=== PATIENT | female | born 1950 | race Hispanic/Latino ===

== ENCOUNTER 2024-09-01 08:20 | Observation (INO) | payer OTHER ==
[2024-08-28 14:21] LABS: IMMATURE GRANULOCYTE ABSOLUTE 0.02 K/uL (0-1); NUCLEATED RED BLOOD CELLS 0.0 % (0.0-0.19); PLATELET COUNT (AUTO) 286 K/uL (130-400); RED BLOOD CELL COUNT(AUTO) 4.01 MIL/uL (4.00-5.50); RED CELL DISTRIBUTION WIDTH 12.9 % (11.0-15.5); WHITE BLOOD COUNT (AUTO) 8.4 K/uL (4.8-10.8)
[2024-08-28 14:24] LABS: APPEARANCE,URINE CLEAR (CLEAR); GLUCOSE, URINE (UA) NEGATIVE (NEGATIVE); LEUKOCYTE ESTERASE ,URINE NEGATIVE Leu/uL (NEGATIVE); NITRATE,URINE NEGATIVE (NEGATIVE); OCCULT BLOOD,URINE NEGATIVE (NEGATIVE)
[2024-08-28 14:29] LABS: ADD UA MICROSCOPIC NO
[2024-08-28 14:39] LABS: CREATININE 0.6 mg/dL (0.5-1.0); GLOMERULAR FILTR. RATE CALC 95.0 mL/min (>90); GLUCOSE,RANDOM 107.0 mg/dL (70-105); SODIUM SERUM 133.0 mmol/L (136-145); UREA NITROGEN, BLOOD 13.0 mg/dL (7-18)
[2024-08-28 14:50] LABS: INR <= 0.93 (0.85-1.15)
[2024-08-28 15:15] VITALS: BP 121/58; PULSE 71; RESP 18; TEMP 98.4
--- NOTE | 2024-08-28 15:53 | EKG ---
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
[2024-09-01] VITALS (23 sets, daily range): BP systolic 112–162; BP diastolic 52–79; PULSE 71–88; RESP 16–18; TEMP 97.5–98.4; O2SAT 84–95
[~2024-09-01] VITALS: Ht 165.1 cm; Wt 65.0 kg
[~2024-09-01 08:20] MED LIST: ASPI-1443 PO; ATOR20TA65 PO; HYDR50TA37 PO; LOSA100T59 PO; METO-391 PO
[2024-09-01] MEDS: LACTATED RINGERS 1000ML 1,000 ML IV ONE (09:09)
[2024-09-01] MEDS ORDERED: VANCOMYCIN 1G/250ML KIT 250 ML IV ONE (12:05)
[2024-09-01] MEDS ORDERED: LIDOCAINE PF 100MG/5ML (2%) SYRINGE 5ML ONE (12:18)
[2024-09-01] MEDS ORDERED: GLYCOPYRROLATE 0.2 MG/ML 5 ML VIAL ONE (12:18)
[2024-09-01] MEDS ORDERED: SUCCINYLCHOLINE CHLORIDE 20 MG/ML 10 ML VIAL ONE (12:18)
[2024-09-01] MEDS ORDERED: NEOSTIGMINE METHYLSULFATE 1MG/ML IV ONE (12:18)
[2024-09-01] MEDS ORDERED: MIDAZOLAM HCL 1 MG/ML 2ML VIAL ONE (12:21)
[2024-09-01] MEDS: THROMBIN-JMI 20000 UNIT KIT TP ONE (13:45)
[2024-09-01] MEDS: TRANEXAMIC ACID 1000MG/10ML ONE (13:45)
[2024-09-01] MEDS: VANCOMYCIN 1G VIAL TP ONE (13:50)
[2024-09-01] MEDS: BACITRACIN 28.4 GM OINT TP ONE (14:01)
[2024-09-01] MEDS: FAMOTIDINE 20MG VIAL IV ONE (16:25)
[2024-09-01] MEDS: 0.9%NACL 1000ML 1,000 ML IV SCH (16:26)
[2024-09-02] VITALS: BP 131/70; PULSE 79; RESP 20; TEMP 98.2
[2024-09-02 04:00] VITALS: BP 154/60; PULSE 81; RESP 18; TEMP 97
--- NOTE | 2024-09-02 05:33 | NUR ---
pt c/o not being able to urinate bladder scan done pt with urinary retention 1000ml, called dr villalba pending call back
--- NOTE | 2024-09-02 05:50 | NUR ---
paged dr villalba via platform consultant pending call back
--- NOTE | 2024-09-02 06:10 | NUR ---
3rd page dr villalba regarding fluid retention, patient straight cath pending call back
--- NOTE | 2024-09-02 06:13 | NUR ---
order given for in/out cath per dr villalba, out put 900cc
[2024-09-02 08:00] VITALS: O2SAT 93
--- NOTE | 2024-09-02 08:37 | OP ---
DATE OF PROCEDURE: 09/01/2024 HISTORY: The patient is a 74-year-old female patient with history of lower back pain radiating to the right leg for which she has had physical therapy, conservative treatment, p.o. medications and injections without improvement and indeed, the MRI did reveal some foraminal stenosis at L4-L5, right side, which was consistent with the patient's symptoms for which she was explained. The patient agreed and consented freely for the proposed surgery. PREOPERATIVE DIAGNOSIS: Lumbar spondylosis with foraminal stenosis and L5 radiculopathy, right side. POSTOPERATIVE DIAGNOSIS: Lumbar spondylosis with foraminal stenosis and L5 radiculopathy, right side. PROCEDURE: Decompressive laminectomy L4-L5, right side with medial facetectomy. SURGEON: Johnny Jimenez MD ANESTHESIA: General. DISPOSITION: The patient tolerated the procedure well. COMPLICATIONS: There were no complications. PROCEDURE DETAILS: The patient was brought to the operating room where adequate general endotracheal anesthesia was achieved. IV antibiotics were given. Thereafter, the patient underwent placement of DVT guidance and the needle for the EMG and SSEP. She was positioned prone with adequate padding to all pressure areas. The back was then extensively prepped and draped in the usual sterile fashion. Delineated by the C-arm, a midline incision was done with Raciel, bipolar coagulation, dissection done, identifying the lamina of L4 and L5, which was corroborated with x-ray. The retractor system was secured and then the lamina was taken down with a drill and Kerrison rongeur. Bovie was used to achieve hemostasis. The thecal sac was exposed after removing the ligamentum flavum and then medial facetectomy with the bony spur indenting the thecal sac and the nerve root of L5 were dissected with the [place]on and then with a Kerrison rongeur #2, this was removed as she had adequate decompression into the nerve root. I used a ball-ended Olivercrona to assess the decompression, freeing the nerve root. Valsalva maneuver ____ and no areas of any inadvertent durotomy. Copious irrigation was done with bacteriostatic solution. Marcaine was injected through the paraspinal muscles and then the wound was closed by an anatomical layer with Vicryl #1 for the fascia, subcutaneous with Vicryl #2 and subcuticular stitch and Dermabond for skin. The patient tolerated the procedure well. Sponge count, needle count and cottonoid count reported complete at the end of the procedure. Estimated blood loss was less then 100 mL. Family members were addressed. TID: [id number] RECEIPT: [id number]
--- NOTE | 2024-09-02 10:15 | NUR ---
PATIENT COMPLAINING OF PAINFUL PRESSURE IN THE BLADDER. BLADDER SCANNED PATIENT AND PATIENT RETAINED 785 URINE. NOTIFIED [facility].
--- NOTE | 2024-09-02 10:55 | NUR ---
INSERTED MARTINEZ. PATIENT DRAINING. SO FAR HAS DRAINED 1000 CC URINE. WILL CONTINUE TO MONITOR.
[2024-09-02 11:50] VITALS: BP 169/68; PULSE 87; RESP 19; TEMP 98.1
--- NOTE | 2024-09-02 12:11 | CONS ---
[facility] CONSULTATION NOTE Date of Service: Sep 02, 2024 Reason for Consultation: [ Medical management] Requesting Physician: [ Dr. Bailey ] HISTORY OF PRESENT ILLNESS: [ Patient is 74 years old female with a history of lower back pain radiating to the right leg who came to [facility] for elective surgery of decompressive laminectomy L4-L5, right side with medial facetectomy. Patient previously was complaining of the lower back pain that was radiating to her left leg. Patient underwent several therapy and conservative treatment with the p.o. medication and different injections but without improvement. MRI revealed some foraminal stenosis at L4-L5 on right side which was consistent with the patient's symptoms for which she was explained. Patient agree for the surgery and was diagnosed with a lumbar spondylosis with foraminal stenosis and L5 radiculopathy right-sided. Yesterday 09/01/2024 patient underwent the surgery with a . Today hospitalist was consulted for the medical management. Patient is complaining of urinary retention. As per bladder scan 900 mL was seen straight catheterization was performed and 950 cc of urine came out. Patient is still continue not urinate throughout the night today the new bladder scan showed 786 cc. Nurse was advised to insert Gutierrez catheter as of now. We will also order ultrasound renal. Most recent vital signs temperature 97 pulse 81 respiration 18 blood pressure 154/60 patient is on room air satting 93%. WBC 8.4 hemoglobin 12.2 hematocrit 36 point one platelets 286. Urine negative for leukocytosis or nitrates. Sodium 133 potassium 4.4 CO2 28 BUN 13 creatinine 0.6 GFR 95 random glucose 107. We will continue to monitor patient in the meantime. A.m. labs. ] REVIEW OF SYSTEMS CONSTITUTIONAL: Denies fevers, chills, or night sweats. No unintentional weight loss reported. NEUROLOGICAL: Denies headache, amaurosis fugax, motor weakness, sensory deficit, vertigo/spinning sensation, gait abnormalities, or tremors. ENT: No hearing loss, otalgia, otorrhea, rhinitis, rhinorrhea, hoarseness, or sore throat. CARDIOVASCULAR: Denies any exertional angina, dyspnea on exertion, orthopnea, paroxysmal nocturnal dyspnea, palpitations, life-threatening arrhythmias, claudication. PULMONARY: Denies any shortness of breath, cough, phlegm/sputum, hemoptysis, pleuritic chest pain. SLEEP: Denies morning headaches, daytime somnolence or napping. Denies difficulty falling asleep, staying asleep, waking from sleep. Denies knowledge of snoring. GASTROINTESTINAL: Denies any type of dysphagia to either liquids or solids. Denies nausea, vomiting, pyrosis, early satiety, abdominal pain, diarrhea, constipation, or changes in stool consistency or caliber. Denies coffee-ground emesis, hematemesis, hematochezia, or melanotic stools. GENITOURINARY: Denies frequency, urgency, nocturia, hematuria or incontinence (Storage/Irritative symptoms.) Low urinary stream, straining to void, urinary intermittency or hesitancy, splitting of the voiding stream, terminal dribbling. Complains of not feeling an urge to urinate ENDOCRINOLOGIC: Denies polyuria, polydipsia, polyphagia or heat/cold intolerances. HEMATOLOGIC: Denies thrombophilia/previous clots, or coagulopathy/bleeding disorders. ONCOLOGIC: Denies personal history of malignancy. DERMATOLOGIC: Denies rashes or pruritus. PSYCHIATRIC: Denies any suicidal or homicidal ideation. Denies hallucinations. PAST MEDICAL HISTORY: [ ] PAST SURGICAL HISTORY: [ 09/01/2024 decompressive laminectomy L4-L5 right-sided with the medial facetectomy ] PAST SOCIAL HISTORY: [ Denies any alcohol illicit. Patient denies any drug illicit. Denies smoking ] FAMILY HISTORY: [ lives at home with family] Coded Allergies: iron (Unverified Allergy, Unknown, 08/28/24) PHYSICAL EXAM GENERAL APPEARANCE: The patient is awake, alert, and oriented, in no acute cardiopulmonary distress. NEUROLOGICAL: Cranial nerves II-XII grossly intact. Motor is 5/5 in bilateral upper and lower extremities proximal to distal. No sensory deficits. HEENT: Face is symmetric. Pupils are equal and reactive. Extraocular movements are intact. NECK: Supple. No JVD. No thyromegaly. No submental, submandibular, pre- /postauricular, occipital or supraclavicular lymphadenopathy. CHEST: Normal chest expansion. No Telemetry. LUNGS: Absence of any rales, rhonchi or any wheezing. CARDIOVASCULAR: Regular. S1 and S2 normal. No appreciable rubs, murmurs or gallops. ABDOMEN: Soft, nontender, and nondistended. There is no rebound, voluntary guarding, or rigidity. : Deferred. No Gutierrez. EXTREMITIES: Non-edematous and not cyanotic. No clubbing. Good capillary refill. SKIN: No skin breakdown. Vital Sign (Last 24 Hours) 09/01/24 09/02/24 19:30 11:50 Temp 98.1 Pulse 87 Resp 19 B/P (MAP) 169/68 Pulse Ox 92 O2 Delivery Room Air O2 Flow Rate 0 FiO2 21 Intake & Output (last 24hrs) 09/01/24 09/01/24 09/02/24 15:00 23:00 07:00 Intake Total 360 ml 250 ml 636.0 ml Output Total 1300 ml 2950 ml Balance 360 ml -1050 ml -2314.0 ml LABS: DIAGNOSTICS / RADIOLOGY: [ ] ASSESSMENT: [ Lumbar spondylosis with foraminal stenosis and L5 radiculopathy right side s/p decompressive laminectomy L4-L5 right-sided with the medial facetectomy 09/01/[address] Bailey Uncontrolled hypertension POA Hyponatremia Na 133 Urinary retention needing Gutierrez catheter insertion] PLAN: [ Admit to: Medical-surgical floor Consults:dr Bailey Antibiotics: none Tests:US retroperitoneal Surgery: Decompressive laminectomy L4-L5 right-sided with medial facetectomy NEURO: Minimize central acting medications as possible. Fall Precautions. Well lighted room through the day and minimize interruptions through the night to prevent acute delirium. PULMONARY: Supplemental 02 as needed BiPAP as necessary, for respiratory distress Titrate Fio2 to keep Spo2 > or = 90% DuoNebs and CPT as needed IS hourly while awake for pulmonary hygiene Out of bed to chair as tolerated VAP Bundle Maintain aspiration precautions at all times CARDIOVASCULAR: Follow hemodynamics. Vital signs per facility protocol GI & NUTRITION: Continue nutritional support Aspirations precautions Prokinetic agents and laxatives as needed KIDNEYS & ELECTROLYTES: Strict monitoring of intake and output Daily weights Avoid nephrotoxic agents Monitor electrolytes and replace as needed Goal urine output of 30mL/hr or 0.5mL/kg/hr Medications to be dosed according to renal function. Avoid contrast if possible ENDOCRINE: Maintain blood glucose between 100-180 at all times. Insulin sliding scale for blood glucose management Hypoglycemia and hyperglycemia protocol in place INFECTIOUS DISEASE: Trend temperature, WBC and procalcitonin level Follow cultures, deescalate antibiotics as soon as possible. Panculture if new onset fever HEMATOLOGY & COAGULATION: Monitor H&H. Keep Hgb > 7 Transfuse 1 unit of PRBC for Hgb < 7 Transfuse 1 pack of platelets of platelets < 20, 000 Watch for any signs and symptoms of bleeding SKIN: Pressure ulcer prevention per facility protocol Specialty mattress as needed Treatment plan discussed with patient and family at the bedside Medications to be reconciled once obtained by patient and/or family and availab le to be reconciled in computer p.r.n. medication for pain nausea and vomiting Questions were answered We will continue to monitor the patient closely Parts Counter Representative for disposition Rehab: PT/OT GI: PPI DVT: SCD's Code Status: Full Resuscitation Disposition: TBD Prognosis: Guarded ] ADVANCED CARE PLANNING 1. Which of the following were discussed? Hospice Care - Yes / No Therapeutic options - Yes / No Advance Directives - Yes / No Other discussions - 2. Discussed with who? Patient 3. Voluntary nature of this service was explained to the patient? Yes / No 4. Amount of time spent - __ more than 35 minutes 5. Reviewed by Physician? (if this service was performed by NPP) Yes / No ATTESTATION BY PHYSICIAN I have seen and examined the patient. I reviewed the documentation, medical decision making, and treatment plan as noted by the mid-level provider above. I agree with the findings and plan of care. ALIZE KIM MD, KATARZYNA B REGISTERED TRAVEL NURSE Sep 02, 2024 12:11
--- NOTE | 2024-09-02 13:41 | NUR ---
DCP:HOME Pt currently lives with her sps Pia Ferrer [phone]. Pt does not have any DME, home health, or provider services. Pt is able to complete ADLs independently. PCP is Dr. Horacio Jackson and uses [facility] for any RX needs. At [place] pt will want to go home and family can assist with transportation. Addendum: 09/02/24 at 1344 by PATRICIA ALMANZAR SS Amended: Links added.
[2024-09-02 16:00] VITALS: BP 162/79; PULSE 75; RESP 16; TEMP 98.3
--- NOTE | 2024-09-03 06:59 | HMCIMG ---
EXAMINATION: ULTRASOUND OF THE RETROPERITONEUM. CLINICAL HISTORY: Renal failure. Urinary retention. COMPARISON: None. TECHNIQUE: Real-time grayscale ultrasound images of the kidneys. FINDINGS: The kidneys are normal in caliber, the right kidney measures 10.9 x 4.9 x 4.6 cm and the left kidney measures 10.0 x 5.5 x 4.0 cm in its craniocaudal, AP, and transverse dimensions respectively. There is normal renal cortical thickness, and cortical echogenicity. There is no renal calculus or hydronephrosis. The urinary bladder is empty. There is Gutierrez???s bulb. IMPRESSION: No significant abnormality. Gutierrez???s bulb is in situ. /[place]
== END 2024-09-02 19:45 | disposition home or self-care (01) ==
LOC: DAH 08:20 → DAHIP 08:21 → DAH 08:21 → INTOOBSV 08:21 → 4AH 15:30
PROVIDERS: ADMIT Neurological Surgery; ATTEND Neurological Surgery
DX: M47.816 Spondylosis without myelopathy or radiculopathy, lumbar region (principal); M48.061 Spinal stenosis, lumbar region without neurogenic claudication; M24.28 Disorder of ligament, vertebrae; G96.191 Perineural cyst; M51.16 Intervertebral disc disorders with radiculopathy, lumbar region; E87.1 Hypo-osmolality and hyponatremia; I10 Essential (primary) hypertension; Z98.890 Other specified postprocedural states; Z79.899 Other long term (current) drug therapy
CPT/HCPCS: 80048; 85025; 85610; 85730; 86850 ×2; 86900 ×2; 86901 ×2; 81003; 36415 ×2; 93005; 63047; 96374; 72020; 76770; A4510; A4663; J7120 ×2; J3373 ×2; J3490 ×4; J3010 ×3; J1100; J0330; J0665 ×2; J2003; J2250; J2704; J2405; J2710; J1010; J3260 ×2; J1171; J0690; A4649 ×4; A4215; A4223 ×2; A4213; A4222; A4221; A4216; A4600; G0378 ×5